=== PATIENT | male | born 1965 | race American Indian/Alaskan Native ===

== ENCOUNTER 2019-12-17 14:47 | Emergency (ER) | payer OTHER ==
[2019-12-17] MEDS ORDERED: ACETAMINOPHEN 500 MG TAB PO ONE (15:08)
[2019-12-17] MEDS ORDERED: ACETAMINOPHEN 500 MG TAB ONE (15:08)
[2019-12-17 15:34] LABS: Basophils % (Auto) 0.3 % (0.0-1.8); Hematocrit 45.4 % (35.5-45.6); Hemoglobin 15.3 gm/dl (11.8-15.2); Lymphocytes # (Auto) 1.7 K/mm3 (1.2-5.4); Lymphocytes % (Auto) 17.3 % (13.4-35.0); Mean Corpuscular HGB Conc 34 % (32-34); Mean Corpuscular Volume 88 fl (84-94); Monocytes # (Auto) 0.7 K/mm3 (0.0-0.8); Monocytes % (Auto) 7.5 % (0.0-7.3); Platelet Count 259 K/mm3 (140-440); Red Blood Count 5.19 M/mm3 (3.65-5.03); Red Cell Distribution Width 13.9 % (13.2-15.2)
[2019-12-17 15:58] LABS: Albumin 4.6 g/dL (3.9-5); Calcium 10.1 mg/dL (8.4-10.2)
--- NOTE | 2019-12-17 16:20 | XRay Report ---
CHEST 2 VIEWS INDICATION / CLINICAL INFORMATION: MAIN: fever, bodyaches; Pt c/o fever 101 at 0900, bodyaches, fatigue, and generalized weakness x 2 da ys.. COMPARISON: None available. FINDINGS: SUPPORT DEVICES: None. HEART / MEDIASTINUM: No significant abnormality. LUNGS / PLEURA: No significant pulmonary or pleural abnormality. No pneumothorax. ADDITIONAL FINDINGS: No significant additional findings. IMPRESSION: 1. No acute findings. Signer Name: Franko Grant MD Signed: 12/17/2019 4:16 PM Workstation Name: [id number]
--- NOTE | 2019-12-17 16:58 | Emergency Department Report ---
ED Fever HPI - General Chief Complaint: Fever Stated Complaint: BODYACHE/HEADACHE Time Seen by Provider: 12/17/19 16:06 - History of Present Illness Initial Comments: Patient is a 54-year-old male presents emergency room with complaints of a fever that began yesterday. He has associated generalized body aches, fatigue, headache. He has not taken anything at all for his fever. [place] He denies any nausea, vomiting, diarrhea, shortness of breath, cough, chest pain, abdominal pain. He denies any recent travel or any known sick contacts. He denies any past medical history or daily medications. He denies any allergies to medications. ED Review of Systems ROS: Stated complaint: BODYACHE/HEADACHE Other details as noted in HPI Comment: All other systems reviewed and negative ED Past Medical Hx - Past Medical History Previous Medical History?: No - Surgical History Past Surgical History?: No - Social History Smoking Status: Never Smoker Substance Use Type: None ED Physical Exam - General Limitations: No Limitations General appearance: alert, in no apparent distress - Head Head exam: Present: atraumatic, normocephalic - Eye Eye exam: Present: normal appearance - ENT ENT exam: Present: mucous membranes moist - Neck Neck exam: Present: full ROM. Absent: meningismus - Respiratory Respiratory exam: Present: normal lung sounds bilaterally. Absent: respiratory distress, wheezes, rales, rhonchi, stridor, chest wall tenderness, accessory muscle use, decreased breath sounds, prolonged expiratory - Cardiovascular Cardiovascular Exam: Present: regular rate, normal rhythm, normal heart sounds. Absent: systolic murmur, diastolic murmur, rubs, gallop - Neurological Exam Neurological exam: Present: alert, oriented X3 - Psychiatric Psychiatric exam: Present: normal affect, normal mood - Skin Skin exam: Present: warm, dry, intact ED Course Vital Signs 12/17/19 12/17/19 15:01 17:45 Temperature 101.8 F H 100.1 F H Pulse Rate 105 H 93 H Respiratory 15 20 Rate Blood Pressure 148/93 Blood Pressure 125/79 [Right] O2 Sat by Pulse 98 96 Oximetry ED Medical Decision Making - Lab Data Result diagrams: 12/17/19 15:21 12/17/19 15:21 Lab Results 12/17/19 12/17/19 Range/Units 15:21 15:21 WBC 9.7 (4.5-11.0) K/mm3 RBC 5.19 H (3.65-5.03) M/mm3 Hgb 15.3 H (11.8-15.2) gm/dl Hct 45.4 (35.5-45.6) % MCV 88 (84-94) fl MCH 29 (28-32) pg MCHC 34 (32-34) % RDW 13.9 (13.2-15.2) % Plt Count 259 (140-440) K/mm3 Lymph % (Auto) 17.3 (13.4-35.0) % Canadian % (Auto) 7.5 H (0.0-7.3) % Eos % (Auto) 0.0 (0.0-4.3) % Baso % (Auto) 0.3 (0.0-1.8) % Lymph # 1.7 (1.2-5.4) K/mm3 Canadian # 0.7 (0.0-0.8) K/mm3 Eos # 0.0 (0.0-0.4) K/mm3 Baso # 0.0 (0.0-0.1) K/mm3 Seg Neutrophils % 74.9 H (40.0-70.0) % Seg Neutrophils # 7.3 (1.8-7.7) K/mm3 Sodium 136 L (137-145) mmol/L Potassium 4.3 (3.6-5.0) mmol/L Chloride 97.7 L (98-107) mmol/L Carbon Dioxide 24 (22-30) mmol/L Anion Gap 19 mmol/L BUN 13 (9-20) mg/dL Creatinine 1.5 (0.8-1.5) mg/dL Estimated GFR 59 ml/min BUN/Creatinine Ratio 9 % Glucose 126 H (75-100) mg/dL Calcium 10.1 (8.4-10.2) mg/dL Total Bilirubin 0.70 (0.1-1.2) mg/dL AST 29 (5-40) units/L ALT 57 H (7-56) units/L Alkaline Phosphatase 107 (35-129) units/L Total Protein 8.1 (6.3-8.2) g/dL Albumin 4.6 (3.9-5) g/dL Albumin/Globulin Ratio 1.3 % - Radiology Data Radiology results: report reviewed CHEST 2 VIEWS INDICATION / CLINICAL INFORMATION: MAIN: fever, bodyaches; Pt c/o fever 101 at 0900, bodyaches, fatigue, and generalized weakness x 2 days.. COMPARISON: None available. FINDINGS: SUPPORT DEVICES: None. HEART / MEDIASTINUM: No significant abnormality. LUNGS / PLEURA: No significant pulmonary or pleural abnormality. No pneumothorax. ADDITIONAL FINDINGS: No significant additional findings. IMPRESSION: 1. No acute findings. Signer Name: Franko Grant MD Signed: 12/17/2019 4:16 PM Workstation Name: [id number] Transcribed By: Dictated By: Franko Grant MD Electronically Authenticated By: Franko Grant MD Signed Date/Time: 12/17/191615 DD/ 15 TD/TT: - Medical Decision Making Patient is a 54-year-old male presents emergency room with complaints of a fever that began yesterday. He has associated generalized body aches, fatigue, headache. He has not taken anything at all for his fever. [place] He denies any nausea, vomiting, diarrhea, shortness of breath, cough, chest pain, abdominal pain. He denies any recent travel or any known sick contacts. He denies any past medical history or daily medications. He denies any allergies to medications. Initial vitals with elevated temperature and heart rate which improved after Tylenol administration. Oxygen saturation is normal. Patient ambulated in the emergency department and maintain sats above 95% on room air. Labs are stable. Chest x-ray with no acute process. advised pt Please take Tylenol every 8 hours as needed for fever or body aches. Increase your fluid intake over the next several days. Please follow-up with a primary care doctor. Please discuss with your primary care do ctor about COVID-19 testing. Please self quarantine for 2 weeks. Please do not go out in public. If you live around others at home please wear a mask. If you need to cough or sneeze please do so in a napkin and immediately throw away and wash your hands. Wash your hands frequently. Wipe everything down. Return to the emergency room immediately for any new or worsening symptoms including but not limited to difficulty in breathing, shortness of breath, chest pain, dizziness, unable to tolerate by mouth intake, etc. - Differential Diagnosis URI, PNA, viral syndrome, COVID-19 Critical care attestation.: If time is entered above; I have spent that time in minutes in the direct care of this critically ill patient, excluding procedure time. ED Disposition Clinical Impression: Generalized body aches Fever Qualifiers: Fever type: unspecified Qualified Code(s): R50.9 - Fever, unspecified Headache Qualifiers: Headache type: unspecified Headache chronicity pattern: acute headache Intractability: not intractable Qualified Code(s): R51 - Headache Fatigue Qualifiers: Fatigue type: unspecified Qualified Code(s): R53.83 - Other fatigue Disposition: DC- TO HOME OR SELFCARE Is pt being admited?: No Does the pt Need Aspirin: No Condition: Stable Instructions: COVID-19, Viral Syndrome (ED) Additional Instructions: Please take Tylenol every 8 hours as needed for fever or body aches. Increase your fluid intake over the next several days. Please follow-up with a primary care doctor. Please discuss with your primary care doctor about COVID-19 testing. Please self quarantine for 2 weeks. Please do not go out in public. If you live around others at home please wear a mask. If you need to cough or sneeze please do so in a napkin and immediately throw away and wash your hands. Wash your hands frequently. Wipe everything down. Return to the emergency room immediately for any new or worsening symptoms including but not limited to difficulty in breathing, shortness of breath, chest pain, dizziness, unable to tolerate by mouth intake, etc. Referrals: SINAN LEUNG MD [Staff Physician] - 2-3 Days [facility] [Provider Group] - 2-3 Days Forms: Work/School Release Form(ED) Time of Disposition: 16:57 Print Language: ARABIC
[2019-12-17 17:54] VITALS: BP 125/79
== END 2019-12-17 17:53 | disposition home or self-care (01) ==
LOC: ED 14:47
DX: R51 Headache (principal); R53.83 Other fatigue; R50.9 Fever, unspecified; M79.18 Myalgia, other site
CPT/HCPCS: 36415; 71046; 80053; 85025